=== PATIENT | male | born 1975 | race Caucasian/White ===

== ENCOUNTER → 2018-02-17 | Outpatient (CLI) | payer OTHER ==
[~2018-02-17] MED LIST: CYCL10 PO; HYDACE5 PO; IBUP800 PO; NAPR500 PO; RXCYCL10 PO; TRAM50 PO
[2018-02-17 13:29] LABS: Protein, Urine Quantitative 23.7 mg/dL (0.0-11.9)
[2018-02-17 13:32] LABS: Microalbumin, Urine Quant. 89.3 mg/L (0.000-20.000)
== END ==
LOC: LAB SHORT 08:15 → LAB 08:15
PROVIDERS: Internal Medicine Nephrology
DX: N18.2 Chronic kidney disease, stage 2 (mild) (principal); D63.1 Anemia in chronic kidney disease; N25.81 Secondary hyperparathyroidism of renal origin; E55.9 Vitamin D deficiency, unspecified; E78.00 Pure hypercholesterolemia, unspecified; R76.9 Abnormal immunological finding in serum, unspecified; R94.5 Abnormal results of liver function studies; R94.6 Abnormal results of thyroid function studies
CPT/HCPCS: 81050; 82043; 84156